=== PATIENT | female | born 1955 | race Caucasian/White ===

== ENCOUNTER → 2017-09-26 | Outpatient (CLI) | payer OTHER | LOC: LAB 14:00 → LAB SHORT 14:00 | PROVIDERS: Family Medicine | DX: Z12.4 Encounter for screening for malignant neoplasm of cervix (principal) | CPT/HCPCS: G0145 ==

== ENCOUNTER 2018-12-12 07:52 | Day surgery (SDC) | payer OTHER ==
[~2018-12-12] VITALS: Ht 165.1 cm; Wt 93.8 kg
--- NOTE | 2018-12-12 08:29 | NUR ---
Ambulatory in Day SurgeryPatient states colon prep results clear. History, Chart, Medications and Allergies reviewed before start of procedure.Lungs clear T/O to Auscultation. Patient confirms NPO status and agrees with scheduled surgery. Patient States Post-Procedure ride home has been arranged.
--- NOTE | 2018-12-12 09:28 | NUR ---
12/12/18 0928 Scotty Fermin PATIENT DETERMINED TO BE ASA APPROPRIATE FOR PROPOFOL SEDATION PRIOR TO START OF PROCEDURE BY . 3-LEAD EKG REVIEWED WITH PHYSICIAN PRIOR TO START OF PROCEDURE.Patient to ENDO 1History, Chart, Medications and Allergies reviewed before start of procedure.MONITOR INTACT WITH CONTINUOUS PULSE OXIMETRY AND INTERMITTENT BP.O2 VIA N/C INTACT THROUGHOUT SEDATION/PROCEDURE.
--- NOTE | 2018-12-12 10:19 | NUR ---
Discharge instructions reviewed with patient. Patient verbalizes understanding. Copy given to patient to take home. Discharged via wheelchair to private car for ride home.
== END 2018-12-12 22:34 | disposition home or self-care (01) ==
LOC: ORSCMMR 07:52 → ORD 09:00 → ORSCMMR 09:00
PROVIDERS: Internal Medicine Gastroenterology
PROC: 0DBL8ZX Excision of Transverse Colon, Via Natural or Artificial Opening Endoscopic, Diagnostic (ICD-10-PCS; principal; 2018-12-12 09:00)
DX: Z12.11 Encounter for screening for malignant neoplasm of colon (principal); D12.3 Benign neoplasm of transverse colon; K57.30 Diverticulosis of large intestine without perforation or abscess without bleeding; Z87.891 Personal history of nicotine dependence
CPT/HCPCS: 88305; J2704; J7120

== ENCOUNTER → 2020-08-18 | Outpatient (CLI) | payer OTHER ==
[2020-08-21 16:08] LABS: HPV 16 Negative (Negative); HPV 18 Negative (Negative); HPV OTHER HR TYPES Negative (Negative)
== END ==
LOC: LAB SHORT 18:54
PROVIDERS: Family Medicine
DX: Z12.4 Encounter for screening for malignant neoplasm of cervix (principal)
CPT/HCPCS: 87624; G0145

== ENCOUNTER → 2023-01-06 | Outpatient (CLI) | payer OTHER ==
[2023-01-06 14:38] LABS: Alanine Aminotransfer (ALT/SGP 23 U/L (12-78); Albumin, Blood 3.6 g/dL (3.4-5.0); Alk Phos 70 U/L (50-136); Anion Gap 1 mmol/L (6-16); Aspartate Aminotrans (AST/SGOT 12 U/L (12-37); Bilirubin, Total 0.4 mg/dL (0.1-1.0); Blood Urea Nitrogen 11 mg/dL (8-24); Bun/Creatinine Ratio 14.3 (12.0-20.0); CHOL/HDL RATIO 4.4; CO2, Blood 30 mmol/L (21-32); Calcium, Blood 9.1 mg/dL (8.5-10.1); Chloride, Blood 108 mmol/L (98-108); Cholesterol 221 mg/dL (50-200); Creatinine, Blood 0.77 mg/dL (0.40-1.00); Globulin, Blood 3.7 g/dL (2.2-4.0); Glomerular Filtration Rate 84 (60-); Glucose, Blood 118 mg/dL (70-99); HDL Cholesterol 50 mg/dL (>39); LDL/HDL RATIO 2.7; Low Density Lipoprotein Chol 137 mg/dL (0-110); Potassium, Blood 4.5 mmol/L (3.5-5.5); Sodium, Blood 139 mmol/L (136-145); Total Protein, Blood 7.3 g/dL (6.4-8.2); Triglycerides 172 mg/dL (30-160); Very Low Density Lipoprot Chol 34 mg/dL (6-32)
== END ==
LOC: LAB 11:50 → LAB SHORT 11:50
PROVIDERS: Physician Assistant
DX: Z11.59 Encounter for screening for other viral diseases (principal); E78.2 Mixed hyperlipidemia; I10 Essential (primary) hypertension; R73.9 Hyperglycemia, unspecified
CPT/HCPCS: 80053; 80061; 83036; 86803

== ENCOUNTER 2023-11-03 08:06 | Day surgery (SDC) | payer OTHER ==
[~2023-11-03] VITALS: Ht 165.1 cm; Wt 92.8 kg
[~2023-11-03 08:06] MED LIST: Lactated Ringer's 1,000 ML IV ONE; Ropivacaine 0.5% HCl/Pf 5 MG/ML 20ML VIAL ONE
[2023-11-03] MEDS ORDERED: CeFAZolin Sodium 2,000 MG VIAL ONE (08:17)
[2023-11-03] MEDS ORDERED: NS 50 ML IV ONE (08:17)
[2023-11-03] MEDS ORDERED: Lactated Ringer's 1,000 ML IV ONE (08:45)
[2023-11-03] MEDS ORDERED: FentaNYL Citrate 50 MCG/ML 2 ML Injection ONE (09:06)
[2023-11-03] MEDS ORDERED: propofoL 20 ML IV ONE (09:06)
[2023-11-03] MEDS ORDERED: Dexamethasone Sod Phos 10 MG/ML 1ML VIAL ONE (09:23)
[2023-11-03] MEDS ORDERED: EPINEPhrine HCl 1 MG/ML 1ML Amp XX ONE (09:41)
--- NOTE | 2023-11-03 09:43 | NUR ---
11/03/23 0943 Bianka Fernandez 0.1ML OF EPI 1MG/ML ADDED TO 20ML ROPIVICAINE 0.5% TO CREATE A LOCAL SOLUTION OF ROPIVICAINE 0.5% W/EPI 1:200,000.
[2023-11-03] MEDS ORDERED: Ondansetron HCl 2 MG / ML 2ML Vial ONE (09:52)
[2023-11-03 10:50] VITALS: BP 146/70
== END 2023-11-03 11:12 | disposition home or self-care (01) ==
LOC: ORSCSDS 08:06
PROVIDERS: Orthopaedic Surgery
PROC: 0SJC4ZZ Inspection of Right Knee Joint, Percutaneous Endoscopic Approach (ICD-10-PCS; principal; 2023-11-03 09:45)
DX: S83.231A Complex tear of medial meniscus, current injury, right knee, initial encounter (principal); E78.00 Pure hypercholesterolemia, unspecified; E66.9 Obesity, unspecified; Z68.34 Body mass index [BMI] 34.0-34.9, adult; Z79.899 Other long term (current) drug therapy; Z87.891 Personal history of nicotine dependence
CPT/HCPCS: J0171; J0690; J1100; J2405; J2704; J2795; J3010; J7120